=== PATIENT | female | born 1980 | race African-American/Black ===

== ENCOUNTER 2016-09-24 11:44 | Emergency (ER) | payer OTHER ==
[~2016-09-24] VITALS: Ht 162.6 cm; Wt 93.9 kg
[~2016-09-24 11:44] MED LIST: CYCLOBENZAPRINE10 MG PO; IBUPROFEN 800800 M1 PO; NORCO 5-325 TA1 EACH PO
[2016-09-24] MEDS ORDERED: NORCO 5-325 TA1 EACH PO (12:12)
[2016-09-24 12:29] VITALS: BP 131/88
== END 2016-09-24 12:31 | disposition home or self-care (01) ==
LOC: ER 11:44
DX: S09.8XXA Other specified injuries of head, initial encounter (principal); E11.9 Type 2 diabetes mellitus without complications; W22.8XXA Striking against or struck by other objects, initial encounter; Y93.89 Activity, other specified; Y92.89 Other specified places as the place of occurrence of the external cause; Y99.0 Civilian activity done for income or pay